=== PATIENT | female | born 1995 | race Caucasian/White ===

== ENCOUNTER 2022-03-21 14:24 | Outpatient (CLI) | payer MEDICAID, SELFPAY ==
[2022-03-22 13:09] LABS: Strep B DNA Probe NEGATIVE (Negative)
== END 2022-03-21 14:25 | disposition home or self-care (01) ==
LOC: NFLDREF 14:24
PROVIDERS: Visit Provider Advanced Practice Midwife
DX: Z34.93 Encounter for supervision of normal pregnancy, unspecified, third trimester (principal); Z3A.35 35 weeks gestation of pregnancy
CPT/HCPCS: 87081; 87653

== ENCOUNTER 2022-04-05 | Outpatient (CLI) | payer MEDICAID, SELFPAY ==
[2022-04-05] VITALS (9 sets, daily range): BP systolic 115–129; BP diastolic 72–81; PULSE 85–111; RESP 15–16; TEMP 36.8–36.9; BMI 23.2
--- OUTSIDE RECORDS SUMMARY | 2022-04-05 00:02 | XMS_ITS | Encounter Summary ---
:1995 Author Organization [facility] Address [address] [place] [address] Care Team Providers Name Role Phone Unavailable Primary Care Provider Unavailable Reason for Visit Reason Comments COVID Nurse Line Encounter Details Date Type Department Care Team Description 07/23/2021 Clinical Communication Division of Cyndee Anderson Nurse Ntahaly [facility] M, R.N. [facility] [place] [address] [place] [address] [facility] [address] [place] [phone] [place] [address] (Work) [place] [phone] Social History Tobacco Use Types Packs/Day Years Used Date Smoking Tobacco: Never Assessed Sex Assigned at Date Recorded Female 10/11/2021 10:05 AM RESEARCH CHEMIST documented as of this encounter Miscellaneous Notes Telephone Encounter - Cyndee Anderson M.S., R.N. - 07/23/2021 8:59 AM RESEARCH CHEMIST COVID-19 Nurse Line Screening ASSESSMENT Initial Screening Pathway Select appropriate pathway: : Adult In the last 48 hours, have you had a fever* OR symptoms that are unrelated to a preexisting illness?: New sore throat,New headache,New cough,New nausea,New loss of smell,New change or loss of taste sensation COVID Symptomatic Screening Do you have any of the following urgent symptoms?: No urgent symptoms noted (Continue Screening) Have you received a COVID-19 vaccine in the last 72 hours? : No vaccine received (Continue Screening) Have you had close contact* with a person who has a LABORATORY CONFIRMED case of COVID-19 in the past 14 days?: No (Continue Screening) Have you tested positive for COVID-19 in the last 45 days?: No. COVID-19 testing is indicated (Continue Screening for Additional Testing) Additional Screening for Influenza, RSV and Strep Select appropriate region: : [place] Do you have any of the following respiratory syntonical virus (RSV) complications? : No complications noted (Continue Screening) Do you have any of the following high risk influenza criteria?: No criteria noted (Continue Screening) Are all of the following Strep criteria met? : No, all criteria are not met. Influenza tesing is indicated. (End Screening) Symptom Onset Date of symptom onset: 07/19/21 Testing Recommendation Endpoint Is testing recommended? : Recommended to test Further Triage Needs Any further triage needs? : No further concerns noted. PLAN Endpoint recommendation: Symptomatic testing indicated, advised to be swabbed for COVID-19 and Influenza, sent to [facility] located at [address] [place] [address] ([facility]). An appointment is required for testing, please call [phone] Monday-Monday 7am to 6pm and Monday & Monday 9am to 4pm to schedule an appointment. Testing hours are 8am - 4:30pm daily. You can also schedule via your Patient Online Services account., Please avoid using public transportation per CDC recommendation. If you do not have personal transportation please self-quarantine until a personal transportation option is available. Standard Care Points -Get a COVID -19 vaccine as soon as you can if not fully vaccinated. -Wash hands frequently with soap and water, use hand picked edge sewing machine operator if soap and water aren't available. -Wear a mask over your nose and mouth to help protect yourself and others if not fully vaccinated and having no symptoms -Stay 6 feet between yourself and others who don't live with you. -Avoid crowds and poorly ventilated indoor spaces. -Seek emergent care if any of the following occur Trouble breathing Bluish lips or face Persistent pain or pressure in the chest New confusion or inability to rouse. -Notify your regular care provider of any new or worsening symptoms. Symptomatic Carepoints: Stay home and separate yourself from others and stay in a specific sick room if able. Avoid sharing personal or household items. Rest. Hydrate. Take Acetaminophen/Ibuprofen asneeded to control fever and muscles aches. Use over the counter medications as needed for other symptoms. Education: Patient/caregiver able to teach back Patient agreeable to plan of care: Yes The following references were used: [facility] novel coronavirus (COVID- 19) resources ARCH CHEMIST documented in this encounter Plan of Treatment Not on filedocumented as of this encounter Visit Diagnoses Not on filedocumented in this encounter
--- OUTSIDE RECORDS SUMMARY | 2022-04-05 00:02 | XMS_ITS | Encounter Summary ---
:1995 Author Organization [facility] Address [address] [place] [address] Care Team Providers Name Role Phone Unavailable Primary Care Provider Unavailable Reason for Visit Reason Onset Date Comments Testing For Upper Respiratory Virus Symptoms 07/23/2021 Encounter Details Date Type Department Care Team Description 07/23/2021 External Outreach Department of Family Ashanti Wiley Contact With And (Suspected) Exposure To COVID-19; [facility] Felecia Bahena Infection [facility] Respiratory [facility], in [address] [place], [place] 134 [facility] [address] [place], [place] [phone] [address] (Work) [phone] Social History Tobacco Use Types Packs/Day Years Used Date Smoking Tobacco: Never Assessed Sex Assigned at Date Recorded Female 10/11/2021 10:05 AM 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 - 07/23/2021 9:14 AM CST Encounter created for symptomatic infectious disease screening with possible COVID, Influenza, RSV, and/or Group A Strep testing. CTURES TECHNICIAN documented in this encounter Plan of Treatment Not on filedocumented as of this encounter Procedures Procedure Name Priority Date/Time Associated Diagnosis Comme nts SARS CORONAVIRUS-2 Routine 07/23/2021 11:24 AM Contact With An d Results for this RNA, V STRUCTURES TECHNICIAN (Suspected) Exposure procedu re are in To COVID-19 the results section. INFLUENZA A/B AND Routine 07/23/2021 11:24 AM Res ults for this RSV, PCR STRUCTURES TECHNICIAN procedure are i n the results section. documented in this encounter Results Influenza A/B and Respiratory Syncytial Virus, PCR (07/23/2021 11:24 AM STRUCTURES TECHNICIAN) Component Value Ref Range Test Analysis Performed Pathologis t Method Time At Signature Specimen NASOPHARYNGEAL 07/24/2021 DTL Source SWAB 4:04 PM STRUCTURES TECHNICIAN Influenza A, Negative Negative 07/24/2021 DTL PCR 4:04 PM STRUCTURES TECHNICIAN Influenza B, Negative Negative 07/24/2021 DTL PCR 4:04 PM STRUCTURES TECHNICIAN Respiratory Negative Negative 07/24/2021 DTL Syncytial 4:04 PM STRUCTURES TECHNICIAN Virus, PCR Comment: ----ADDITIONAL INFORMATION---- This assay is performed using the FDA-cl eared Simplexa Flu A/B and RSV Direct ([employer] For testing p erformed at [facility] in [place], [place], performance characteristics for samp les submitted in phosphate buffered saline were determined by [facility] in a manner consistent with CLIA requirements. Specimen Anatomical Collection Method Collection Time Receive d Time (Source) Location / / Volume Laterality Varies 07/23/2021 11:24 07/24/2021 AM STRUCTURES TECHNICIAN 11:58 AM STRUCTURES TECHNICIAN Wiley Burrell D.O. LAB MICROBIOLOGY - GENERAL O RDERABLES Performing Organization Address City/State/ZIP Code Phon e Number [facility] - [address] [place] [phone] [facility] [place] [address] [facility] 200 [facility] SARS Coronavirus-2 RNA, V Symptomatic (07/23/2021 11:24 AM STRUCTURES TECHNICIAN) Patholo gist Method Time Signature SARS-CoV-2 Swab, 07/24/2021 MKTO Specimen Nasopharynx 12:26 AM Source STRUCTURES TECHNICIAN SARS CoV-2 Undetected Undetected 07/24/2021 MKTO RNA, TMA 12:26 AM STRUCTURES TECHNICIAN Comment: SARS-CoV-2 RNA absent. This result does not rule out COVID-19 in the patient, as the sensitivity of the test depends o n the timing of the specimen collection and the quality of the specim en. Result should be correlated with patient's history and clinical presentat ion. ----ADDITIONAL INFORMATION---- This molecular amplification test was pe rformed using the Aptima SARS-CoV-2 assay ([employer] on the MEDOVENTs tem under emergency use authorization (EUA) by the U.S. Food and Drug Administ sha. Fact sheets for this EUA assay can be fo und at the following links: For Healthcare Providers: https://www.fd a.gov/media/299974/download For Patients: https://www.fda.gov/media/ 545484/download Specimen Anatomical Collection Method Collection Time Receive d Time (Source) Location / / Volume Laterality Varies 07/23/2021 11:24 07/23/2021 8:00 (Nasopharynx) AM STRUCTURES TECHNICIAN PM STRUCTURES TECHNICIAN Wiley Burrell D.O. LAB MICROBIOLOGY - GENERAL O RDERABLES Performing Organization Address City/State/ZIP Code Phon e Number [facility]- [address] [place] [address] [place] [address] System in [address] documented in this encounter Visit Diagnoses Diagnosis Contact With And (Suspected) Exposure To COVID-19 Infection Upper Respiratory documented in this encounter Additional Health Concerns Infection Onset Date Last Indicated Resolved Time COVID19 Pending 07/23/2021 07/23/2021 07/24/2021 12:27 AM STRUCTURES TECHNICIAN documented as of this encounter
--- OUTSIDE RECORDS SUMMARY | 2022-04-05 00:02 | XMS_ITS | Encounter Summary ---
:1995 Author Organization [facility] Address [address] [place] [address] Care Team Providers Name Role Phone Unavailable Primary Care Provider Unavailable Encounter Details Date Type Department Care Team Description 07/23/2021 Admin Visit Department of Family Medicine, [address] [address] 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
--- OUTSIDE RECORDS SUMMARY | 2022-04-05 00:02 | XMS_ITS | Clinical Summary ---
:[address] [facility] Address [address] [place] [address] Care Team Providers Name Role Phone Unavailable Primary Care Provider Unavailable Source Comments Patient records contain information from all sites at [facility]. For routine questions regarding patient records, call [phone] during business hours, M-F 8:00 AM - 5:00 PM Central Time. Record requests for emergency care only can be directed to [phone] at any time.[facility] Social History Tobacco Use Types Packs/Day Years Used Date Smoking Tobacco: Never Assessed Sex Assigned at Date Recorded Female 10/11/2021 10:05 AM [employer]BER[employer] ADVISORS Plan of Treatment Health Maintenance Due Date Last Done Comments HIV Screening 1995 Hepatitis B Vaccines (1 of 1995 3 - 3-dose series) Hepatitis C Screening 1995 Depression Screening 08/14/2021 (Annual PHQ-2) Influenza Vaccine (#1) 2022 07/21/2011, 07/21/2011 Cervical Cancer Screening 06/10/2024 06/10/2021 DTaP,Tdap,and Td Vaccines 08/10/2028 08/10/2018, 10/07/2016 , (7 - Td or Tdap) 05/26/2008, Additional history exists HPV Vaccines Completed 02/14/2012, 07/21/2011, 04/21/2010 COVID-19 Vaccine Completed 10/12/2021, 01/06/2021, 12/16/2020 Pneumococcal vaccine (0-64 Aged Out No lo nger eligible years) based on patient 's age to complete this topic Insurance Payer Benefit Plan / Subscriber ID Effective Dates Phone Addre ss Type Group UCARE UCARE [id number] 2021-Present [phone] [address] [place] [address]
--- OUTSIDE RECORDS SUMMARY | 2022-04-05 00:02 | XMS_ITS | Encounter Summary ---
:1995 Author Organization [facility] Address [address] [place] [address] Care Team Providers Name Role Phone Unavailable Primary Care Provider Unavailable Reason for Visit Reason Comments COVID Inquiry Encounter Details Date Type Department Care Team Description 07/23/2021 Clinical Communication Central Appointment [facility] Office in [address] [id number] Social History Tobacco Use Types Packs/Day Years Used Date Smoking Tobacco: Never Assessed Sex Assigned at Date Recorded Female 10/11/2021 10:05 AM WOMEN'S GARMENT FITTER documented as of this encounter Miscellaneous Notes Telephone Encounter - Krystle Paula R.N. - 07/23/2021 8:41 AM CST What is the purpose of the call?: Symptomatic (Calling PCP Office) Calling [place] [facility] What region is the patient calling from? : [place] Have you tested positive for COVID-19 in the last 20 days? : No In the past 14 days are any of the following symptoms new to you and not related to an existing health condition?: New cough,New sore throat,New headache (runny nose) Because of symptoms, transfer patient to: : [place] COVID Nurse Line (End Screening) Symptom Onset Date of symptom onset: 07/19/21 Plan: Endpoint recommendation: Transferred to Nursing/COVID Line/Care Team *Reminder if sending patient for testing in [facility] or [facility], route encounter to the correct testing pool. N'S GARMENT FITTER documented in this encounter Plan of Treatment Not on filedocumented as of this encounter Visit Diagnoses Not on filedocumented in this encounter
--- NOTE | 2022-04-05 02:23 | W.PM.LDBA ---
Subjective History of Present Illness Narrative: Patient is being admitted to Labor and Delivery for labor. She is a 26 year old at 37.2 weeks gestation. She began contractions around 2200 and they have increased in frequency and intensity since. She was AmniSure negative in the clinic yesterday but she continues to leak a small amount of clear fluid and especially notices it with contractions. Will repeat AmniSure. She endorses good movement and denies bleeding. She is planning an unmedicated and would like to utilize hydrotherapy. Her full history and physical was dictated by Darrin Whelan CNM on 04/04/2022. Please see this for details. Pelvic:? SVE: 3cm/50%/-2 per RN exam. She made cervical change 1 hour later to 4cm.? Membrane status:? intact (will confirm with a repeat AmniSure due to continuing to leak fluid with contractions)? presentation:? vertex? FHT:? Moderate Variability.? Positive Accels.? No Decels. Baseline 130.? [place]:? Ctx Q2-3min? 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 HERMINIA on first US:? 0.7 x 2.2 x 1.6 cm 2. H/o GDM w/ 2nd ?? ? A1C:? 4.8% ?? ? Early glucose test, to be completed at 20 week visit:? 139 ?? ? 28 week gct: 159. 3hr gtt: passed 3. H/o preE w/ 1st ?? ? Daily baby ASA at 12 weeks 4. H/o PP anxiety and depression; took lexapro for short period of time; feels she is doing well now 5. Varicella non immune: will need PP vaccination 6.??O Rh negative.? RhoGAM at 28 weeks. NEEDS RhoGAM at 28 weeks: given 02/02/22 NEEDS RhoGAM pp 7.? EFW 12 % at 20 weeks:? She is small stature and has smaller babies.? Repeat US for EFW at 28 weeks:? growth 25%.? 8.? 1.5 cm umbilical hernia 9. Measuring smaller than dates 04/04/22 Hx of small babies, slightly behind dates but has consistently measured small. Consider growth US next visit. Mat 21:? Negative contraception: sterilization.? Planning tubal ligation after delivery: consent reviewed and signed. 03/21/2022 Generic sterilization handout given. OB - H&P: Exam Physical Exam: Vital signs: Pulse BP 111 H 127/72 04/05/22 00:13 04/05/22 00:13 Constitutional: Constitutional: no acute distress Routine HEENT Exam: Head: Present normal inspection Routine Neck Exam: Neck: Present full ROM Routine Respiratory Exam: Respiratory: Present CTA bilaterally Routine Cardiovascular Exam: Cardiovascular: RRR Detailed Labor and Delivery Exam: Patient Gravid: yes Dilation (cm): 4 Effacement (%): 50 Tachysystole: No Contraction intensity: Moderate Comments: contractions ever 2-3 min Fetus (Single): Monitor Accelerations: Present Monitor Decelerations: None Digital Media Specialist Variability: Moderate (11-25) (6-5) Routine Extremities Exam: Extremities: Present full ROM Routine Back/Spine/Pelvis Exam: Back/Spine: full ROM Routine Neurological Exam: Present alert and oriented X3 Routine Psychiatric Exam: Present normal affect, normal thought process and cooperative OB - Problem Based A/P Additional Plan (1) : Status: Acute (2) Rh negative status during : Status: Acute Plan ASSESSMENT:? at 37.2 weeks gestation? GBS negative RH negative? Uncomplicated ? PLAN:? 1. Desires water . Consent signed. Hep C negative.? 2. Candidate for analgesia of choice. Planning unmedicated .? 3. Anticipate ? 4. Expectant management at this time.? 5. IV to be placed for hx PP hemorrhage 6. Intermittent auscultation or per unit policy as condition changes or per nurses discretion. ? Delivery/Labor/Induction Plan Plan: expectant management
[2022-04-05 02:33] LABS: Basophils Percent Auto 0.2 % (0.0-3.0); Eosinophils Percent Auto 0.3 % (0.0-7.0); Hematocrit 36.7 % (33.0-51.0); Hemoglobin* 12.3 gm/dL (12.0-16.0); Immature Granulocytes Abs Auto 0.11 K/uL (0.00-0.30); Lymphocytes Percent Auto 18.2 % (20-44); Mean Corpuscular HGB Conc 34 gm/dL (32-36); Mean Corpuscular Hemoglobin 31 pg (26-34); Mean Corpuscular Volume 93 fL (80-100); Neutrophils Percent Auto 76.5 % (42.0-72.0); Platelet Count* 288 K/uL (140-440); RDW Coefficient of Variation % 13.6 % (11.5-15.5); Red Blood Count 3.93 m/uL (4.00-5.20); Slide Review Reflex No; White Blood Count* 14.43 K/uL (4.50-11.00)
[2022-04-05 03:33] LABS: SARS PCR* Negative SARS-CoV-2 (Negative)
--- NOTE | 2022-04-05 08:20 | P.DS_ITS ---
DS: Providers Provider Date Seen: 04/05/22 Primary care physician: Not a Local Provider Admitting Clinician: Beatriz Alfred CNM Attending Physician on discharge: Stephany Whelan CNM Date of Discharge: 04/05/22 DS: Diagnosis Discharge Diagnosis (1) Pain during labor: Status: Acute (2) : Status: Acute (3) Rh negative status during : Status: Acute Discharge Plan Discharge Disposition: Home, Self-Care Primary Care Provider: Provider,Not a Local Patient Instructions: OB Undelivered at 35 weeks IUP or more Activity Restrictions/Additional Instructions: Patient verbalized understanding of reviewed discharge instructions. Discharge Orders: Discharge Order (Routine); Ordered 04/05/22 Ordered By: Stephany Whelan Discharge Medications: No Action doxylamine succinate 25 mg tablet 25 mg PO .Bedtime aspirin 81 mg tablet,chewable 81 mg PO QDAY magnesium hydroxide 400 mg/5 mL suspension 30 ml PO .Daily as needed PRN famotidine 10 mg tablet 10 mg PO DAILY ferrous sulfate 325 mg (65 mg iron) tablet 325 mg PO DAILY calcium carbonate [Tums] 200 mg calcium (500 mg) tablet,chewable 200 mg PO BID ondansetron HCl 4 mg tablet 4 mg PO Q6H PRN (Reason: nausea and vomiting) Qty: 60 3RF prenat.vits,waldo,kdy-ghty-okads Tablet 1 tab PO QDAY Hospital Course Course Hospital Course: Jeffery is a at 37 2/7 weeks gestation admitted this morning for labor pain and contractions. She initially made change but stalled out at 5 cm and has remained unchanged for 4 hours, recent exam 5/60%/-3. She does continue to have irregular contractions that feel intense but not more than when she arrived. Labs Labs: Laboratory Tests 04/05/22 04/05/22 04/05/22 Range/Units 02:29 02:29 01:40 WBC 14.43 H (4.50-11.00) K/uL RBC 3.93 L (4.00-5.20) m/uL Hgb 12.3 (12.0-16.0) gm/dL Hct 36.7 (33.0-51.0) % MCV 93 (80-100) fL MCH 31 (26-34) pg MCHC 34 (32-36) gm/dL RDW Coeff of Shana 13.6 (11.5-15.5) % Plt Count 288 (140-440) K/uL Neut % (Auto) 76.5 H (42.0-72.0) % Lymph % (Auto) 18.2 L (20-44) % [place] % (Auto) 4.0 (0.0-11.0) % Eos % (Auto) 0.3 (0.0-7.0) % Baso % (Auto) 0.2 (0.0-3.0) % Neut # (Auto) 11.00 H (1.7-7.0) K/uL Lymph # (Auto) 2.60 (0.90-2.90) K/uL [place] # (Auto) 0.60 (0.00-0.90) K/UL Eos # (Auto) 0.00 (0.00-0.50) K/uL Baso # (Auto) 0.00 (0.00-0.30) K/uL Abs Immat Gran (auto) 0.11 (0.00-0.30) K/uL SARS-CoV-2 (PCR) Negative SARS-CoV-2 (Negative) Blood Type O Negative Antibody Screen POSITIVE Antibody Identification Pending OB Problem List Additional Plan (1) : Status: Acute (2) Rh negative status during : Status: Acute (3) Pain during labor: Status: Acute Delivery/Labor/Induction Plan Plan: other (Discharge home for expectant management. Return with increasing or more regular contractions or pain.) DS: Summary Vital Signs Vital Signs: Vital Signs Temp Pulse Resp BP 04/05/22 06:54 98.4 F 16 04/05/22 06:52 85 115/74 04/05/22 05:53 98.3 F 85 15 129/81 04/05/22 04:55 98.4 F 86 16 124/77 04/05/22 03:58 98.5 F 16 04/05/22 03:57 88 125/80 04/05/22 03:00 98.4 F 111 H 16 123/79 04/05/22 03:21 111 H 123/79 04/05/22 00:13 111 H 127/72 Discharge Examination General appearance: alert and in no apparent distress
== END 2022-04-05 08:39 | disposition home or self-care (01) ==
LOC: OB OUT 00:01 → OB 08:31
PROVIDERS: Visit Provider Advanced Practice Midwife
DX: O47.1 False labor at or after 37 completed weeks of gestation (principal); Z3A.37 37 weeks gestation of pregnancy; Z01.83 Encounter for blood typing; Z11.3 Encounter for screening for infections with a predominantly sexual mode of transmission
CPT/HCPCS: 36415; 85025; 86850; 86870; 86880; 86900; 86901; 87635; 99213

== ENCOUNTER 2022-04-18 15:44 | Inpatient (IN) | payer MEDICAID, SELFPAY ==
[2022-04-18] VITALS (61 sets, daily range): BP systolic 65–160; BP diastolic 40–96; PULSE 90–164; RESP 14–16; TEMP 36.5–37.2; O2SAT 88–100; BMI 23.0
--- OUTSIDE RECORDS SUMMARY | 2022-04-18 15:22 | XMS_ITS | Encounter Summary ---
:1995 Author Organization [facility] Address [address] [place] [address] Care Team Providers Name Role Phone Unavailable Primary Care Provider Unavailable Reason for Visit Reason Onset Date Comments Testing For Upper Respiratory Virus Symptoms 07/23/2021 Encounter Details Date Type Department Care Team Description 07/23/2021 External Outreach Department of Family Ashanti Wiley Contact With And (Suspected) Exposure To COVID-19; [facility] Felecia Bahena Infection [facility] Respiratory [facility], in [address] [place], [place] [address] 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 - 07/23/2021 9:14 AM CST Encounter created for symptomatic infectious disease screening with possible COVID, Influenza, RSV, and/or Group A Strep testing. UCTION ASSOCIATE documented in this encounter Plan of Treatment Not on filedocumented as of this encounter Procedures Procedure Name Priority Date/Time Associated Diagnosis Comme nts SARS CORONAVIRUS-2 Routine 07/23/2021 11:24 AM Contact With An d Results for this RNA, V PRODUCTION ASSOCIATE (Suspected) Exposure procedu re are in To COVID-19 the results section. INFLUENZA A/B AND Routine 07/23/2021 11:24 AM Res ults for this RSV, PCR PRODUCTION ASSOCIATE procedure are i n the results section. documented in this encounter Results Influenza A/B and Respiratory Syncytial Virus, PCR (07/23/2021 11:24 AM PRODUCTION ASSOCIATE) Component Value Ref Range Test Analysis Performed Pathologis t Method Time At Signature Specimen NASOPHARYNGEAL 07/24/2021 DTL Source SWAB 4:04 PM PRODUCTION ASSOCIATE Influenza A, Negative Negative 07/24/2021 DTL PCR 4:04 PM PRODUCTION ASSOCIATE Influenza B, Negative Negative 07/24/2021 DTL PCR 4:04 PM PRODUCTION ASSOCIATE Respiratory Negative Negative 07/24/2021 DTL Syncytial 4:04 PM PRODUCTION ASSOCIATE Virus, PCR Comment: ----ADDITIONAL INFORMATION---- This assay is performed using the FDA-cl eared Simplexa Flu A/B and RSV Direct ([employer] For testing p erformed at [facility] in [place], [place], performance characteristics for samp les submitted in phosphate buffered saline were determined by [facility] in a manner consistent with CLIA requirements. Specimen Anatomical Collection Method Collection Time Receive d Time (Source) Location / / Volume Laterality Varies 07/23/2021 11:24 07/24/2021 AM PRODUCTION ASSOCIATE 11:58 AM PRODUCTION ASSOCIATE Wiley Burrell D.O. LAB MICROBIOLOGY - GENERAL O RDERABLES Performing Organization Address City/State/ZIP Code Phon e Number [facility] - [address] [place] [phone] [facility] [place] [address] Laboratories-[facility] [address] [facility] SARS Coronavirus-2 RNA, V Symptomatic (07/23/2021 11:24 AM PRODUCTION ASSOCIATE) Patholo gist Method Time Signature SARS-CoV-2 Swab, 07/24/2021 MKTO Specimen Nasopharynx 12:26 AM Source PRODUCTION ASSOCIATE SARS CoV-2 Undetected Undetected 07/24/2021 MKTO RNA, TMA 12:26 AM PRODUCTION ASSOCIATE Comment: SARS-CoV-2 RNA absent. This result does not rule out COVID-19 in the patient, as the sensitivity of the test depends o n the timing of the specimen collection and the quality of the specim en. Result should be correlated with patient's history and clinical presentat ion. ----ADDITIONAL INFORMATION---- This molecular amplification test was pe rformed using the Aptima SARS-CoV-2 assay ([employer] on the [employer] tem under emergency use authorization (EUA) by the U.S. Food and Drug Administ sha. Fact sheets for this EUA assay can be fo und at the following links: For Healthcare Providers: https://www.fd a.gov/media/819179/download For Patients: https://www.fda.gov/media/ 073106/download Specimen Anatomical Collection Method Collection Time Receive d Time (Source) Location / / Volume Laterality Varies 07/23/2021 11:24 07/23/2021 8:00 (Nasopharynx) AM PRODUCTION ASSOCIATE PM PRODUCTION ASSOCIATE Wiley Burrell D.O. LAB MICROBIOLOGY - GENERAL O RDERABLES Performing Organization Address City/State/ZIP Code Phon e Number [facility]- [address] [place] [address] [place] [address] System in [address] documented in this encounter Visit Diagnoses Diagnosis Contact With And (Suspected) Exposure To COVID-19 Infection Upper Respiratory documented in this encounter Additional Health Concerns Infection Onset Date Last Indicated Resolved Time COVID19 Pending 07/23/2021 07/23/2021 07/24/2021 12:27 AM PRODUCTION ASSOCIATE documented as of this encounter
--- OUTSIDE RECORDS SUMMARY | 2022-04-18 15:22 | XMS_ITS | Clinical Summary ---
:1995 Author Organization [facility] [place] [address] Support Name Relationship Address Phone Kalli Deleon Unavailable [address] [phone] [place] [address] Satnam Gonzalez Unavailable Unavailable Care Team Providers Name Role Phone Marie Mathews MD Primary Care Provider [phone] Allergies Active Allergy Reactions Severity Noted Date Comments Amoxicillin Vomiting 12/04/2014 Blood-Group Specific Other - Describe In 12/26/2016 Patient has passive Substance Comment Field Anti-D.Blood p roduct orders may be delayed. Draw 2 purple tops and one red top for all Type and Screen/Red cell product orders. Sulfa (Sulfonamide *Unknown - Childhood 04/21/2010 Antibiotics) Rxn Tetracycline Hives 02/14/2012 Medications Medication Sig Dispensed Refills Start Date End Date Status metoclopramide HCl Take 1 Tablet 15 Tablet 0 09/29/2021 Active (REGLAN) 10 mg (10 mg) by tabletIndications: Nausea mouth every 6 vomiting and diarrhea hours if needed for Nausea/Vomiting . diphenhydrAMINE Take 1 Tablet 15 Tablet 0 09/29/2021 Active (BENADRYL) 25 mg (25 mg) by tabletIndications: Nausea mouth every 4 vomiting and diarrhea hours. Active Problems Problem Noted Date Family history of leukemia 06/11/2021 Overview: Daughter, diagnosed at age 2 h/o hemorrhage 06/11/2021 Overview: 2nd delivery, delivered at [place] [facility] Myopia of both eyes with astigmatism 08/23/2017 Anxiety 03/19/2015 Estimated Date of Delivery Comments Yes 04/24/2022 Resolved Problems Problem Noted Date Resolved Date Mild pre-eclampsia in third trimester 12/18/2016 Suspected rupture of membranes not found for normal first 02/12/2021 Immunizations Name Administration Dates Next Due COVID-19 vaccine ([employer] 10/12/2021 30mcg/0.3mL) 12YO+ KERRI-SUCROSE PF, MDV COVID-19 vaccine ([employer] 01/06/2021, 12/16/2020 30mcg/0.3mL) PF, MDV DTP 03/25/1997, 07/15/1996 DTP-HIB 03/25/1997, 07/15/1996 DTaP-HIB (TriHIBIT) 02/02/2001, 02/02/2001 HIB PRP-D (ProHIBIT) 03/25/1997, 07/15/1996 Hepatitis B (Peds) 11/13/1996, 07/15/1996, 1995 Human Papilloma Virus Vaccine 02/14/2012, 07/21/2011, 2009 Inactivated Polio Vaccine 02/02/2001, 03/25/1997, 07/15/1996 Influenza, IIV3 (Age 6-35 mos) 07/21/2011 Influenza, IIV3 (Age >=3 years) 07/21/2011 Influenza, IIV4 06/10/2021, 07/12/2018, 04/23/2015 MMR 02/02/2001, 03/25/1997 MMRV 04/13/1998, 03/25/1997 Meningococcal Vaccine (Menactra) 05/26/2008 Meningococcal Vaccine (Menveo) 02/14/2012 Oral Polio Vaccine 03/25/1997, 07/15/1996 Tdap 08/10/2018, 10/07/2016, 05/26/2008 Varicella Vaccine 05/26/2008, 04/13/1998 Family History Medical History Relation Name Comments Good Health Child Leukemia Daughter Cancer-breast Maternal Grandmother Cancer-colon Maternal Grandmother Cancer-breast Mother Relation Name Status Comments Child Alive Daughter Alive Maternal Grandmother Mother Alive Sister 1 Alive Sister 2 Alive Social History Tobacco Use Types Packs/Day Years Used Date Former Smoker Cigarettes 0.25 Quit: 09/13/19 20 Smokeless Tobacco: Never Used Tobacco Cessation: Counseling Given: Yes Comments: 3 cigs/day for 6 months Alcohol Use Standard Drinks/Week Comments No 0 (1 standard drink = 0.6 oz pure alcoho l) Estimated Date of Delivery Comments Yes 04/24/2022 Sex Assigned at Date Recorded Female 10/21/2020 2:00 PM 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 Delivered at [place]. Last Filed Vital Signs Vital Sign Reading Time Taken Comments Blood Pressure 139/85 09/29/2021 3:46 PM SHUTTLE PREPARATION SUPERVISOR Pulse 96 09/29/2021 4:01 PM SHUTTLE PREPARATION SUPERVISOR Temperature 36.5 ??C (97.7 ??F) 09/29/2021 3:46 PM SHUTTLE PREPARATION SUPERVISOR Respiratory Rate 22 09/29/2021 3:46 PM SHUTTLE PREPARATION SUPERVISOR Oxygen Saturation 98% 09/29/2021 4:01 PM SHUTTLE PREPARATION SUPERVISOR Inhaled Oxygen Concentration - - Weight 40.8 kg (90 lb) 09/29/2021 3:46 PM SHUTTLE PREPARATION SUPERVISOR Height 152.4 cm (5') 09/29/2021 3:46 PM SHUTTLE PREPARATION SUPERVISOR Body Mass Index 17.58 09/29/2021 3:46 PM SHUTTLE PREPARATION SUPERVISOR Plan of Treatment Health Maintenance Due Date Last Done Comments Hepatitis C screening for age 0512/19/2013 18-79 Depression screening for age 12+ 02/12/2022 02/12/2021, , 10/30/2020, Additional history exists Influenza for age 9-49 04/14/2022 06/10/2021, 07/12/2018, 04/23/2015, Additional history exists BMI (ht and wt on same day) for 06/10/2022 06/10/2021, 07/0 09/2020, age 18+ 10/29/2019, Additional history exists Pap test for age 21-65 06/10/2024 06/10/2021, 02/03/2017 Tetanus booster 08/10/2028 08/10/2018, 10/07/2016, 05/26/2008 HPV series for age 9-26 Completed 02/14/2012, 02/14/2012, 07/21/2011, Additional history exists Tdap Completed 08/10/2018, 10/07/2016, 05/26/2008 COVID-19 vaccine series Completed 10/12/2021, 01/06/2021, 12/16/2020 Results Not on filefrom Last 3 Months Insurance Payer Benefit Plan / Subscriber ID Effective Dates Phone Addre ss Type Group [employer] 2021-Present [address] [place] [address] [facility] [id number] 2021-Present [address] [place] [address] [address] [place] [address] LisaJeffery Personal/Family Self 1995 [address] (Home) [address] [place] [address] Advance Directives Latest Code Status on File Code Status Date Activated Date Inactivated Comments Full Code 12/19/2016 4:56 AM 2016 5:24 PM Full Code 12/18/2016 1:41 PM 12/19/2016 4:56 AM Full Code 11/30/2016 10:20 AM 11/30/2016 1:14 PM Full Code 09/14/2016 10:31 AM 09/14/2016 2:20 PM Code Status Discussion: Not Discussed Care Teams Milk Receiver Relationship Specialty Start Date End Date Marie Mathews MD PCP - General Family Practice 02/12/21 [address] [facility] Precious HERZOGSHASHI NELSON [address]
--- OUTSIDE RECORDS SUMMARY | 2022-04-18 15:22 | XMS_ITS | Encounter Summary ---
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
--- OUTSIDE RECORDS SUMMARY | 2022-04-18 15:22 | XMS_ITS | Encounter Summary ---
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 - 07/23/2021 8:41 AM CST What is the purpose of the call?: Symptomatic (Calling PCP Office) Calling [place] PCP Office What region is the patient calling from? : [place] Have you tested positive for COVID-19 in the last 20 days? : No In the past 14 days are any of the following symptoms new to you and not related to an existing health condition?: New cough,New sore throat,New headache (runny nose) Because of symptoms, transfer patient to: : [place] COVID Nurse Line (End Screening) Symptom Onset Date of symptom onset: 07/19/21 Plan: Endpoint recommendation: Transferred to Nursing/COVID Line/Care Team *Reminder if sending patient for testing in [facility] or [facility], route encounter to the correct testing pool. SFER SPECIALIST documented in this encounter Plan of Treatment Not on filedocumented as of this encounter Visit Diagnoses Not on filedocumented in this encounter
--- OUTSIDE RECORDS SUMMARY | 2022-04-18 15:22 | XMS_ITS | Clinical Summary ---
:1995 Author Organization [facility] Address [address] [place] [address] Care Team Providers Name Role Phone Unavailable Primary Care Provider Unavailable Source Comments Patient records contain information from all sites at [facility]. For routine questions regarding patient records, call [phone] during business hours, M-F 8:00 AM - 5:00 PM Central Time. 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
[2022-04-18 16:20] LABS: Basophils Absolute Auto 0.03 K/uL (0.00-0.30); Basophils Percent Auto 0.3 % (0.0-3.0); Eosinophils Absolute Auto 0.04 K/uL (0.00-0.50); Eosinophils Percent Auto 0.4 % (0.0-7.0); Hematocrit 35.7 % (33.0-51.0); Immature Granulocytes Abs Auto 0.15 K/uL (0.00-0.30); Lymphocytes Percent Auto 13.1 % (20-44); Mean Corpuscular HGB Conc 34 gm/dL (32-36); Mean Corpuscular Hemoglobin 31 pg (26-34); Mean Corpuscular Volume 92 fL (80-100); Monocytes Percent Auto 4.6 % (0.0-11.0); Neutrophils Percent Auto 80.2 % (42.0-72.0); Platelet Count* 298 K/uL (140-440); RDW Coefficient of Variation % 13.4 % (11.5-15.5); White Blood Count* 10.96 K/uL (4.50-11.00)
[2022-04-18 16:21] LABS: Slide Review Reflex No
--- NOTE | 2022-04-18 16:21 | W.PM.LDBA ---
Subjective History of Present Illness Narrative: Patient is being admitted to Labor and Delivery for spontaneous onset of labor. She is a 26 year old at 39 1/7 weeks gestation. Her full history and physical was dictated by Darrin Whelan CNM on 04/04/2022. Please see this for details. OB History 1. HERMINIA on first US: 0.7 x 2.2 x 1.6 cm 2. H/o GDM w/ 2nd A1C: 4.8% Early glucose test, to be completed at 20 week visit: 139 28 week gct: 159. 3hr gtt: passed 3. H/o preE w/ 1st Daily baby ASA at 12 weeks 4. H/o PP anxiety and depression; took lexapro for short period of time; feels she is doing well now 5. Varicella non immune: will need PP vaccination 6. O Rh negative. RhoGAM at 28 weeks. NEEDS RhoGAM at 28 weeks: given 02/02/22 NEEDS RhoGAM pp 7. EFW 12 % at 20 weeks: She is small stature and has smaller babies. Repeat US for EFW at 28 weeks: growth 25%. 8. 1.5 cm umbilical hernia 9. Measuring smaller than dates 04/04/22 Hx of small babies, slightly behind dates but has consistently measured small. Consider growth US next visit. 10. Anti-D antibody present on 04/05/22 admission T&S, likely related to Rhogam at 28 weeks Previously negative Awaiting Titer results Mat 21: Negative contraception: sterilization. Planning tubal ligation after delivery: consent reviewed and signed. 03/21/2022 Generic sterilization handout given. Flu: Covid: completed; recommended obtaining booster Tdap: OB - H&P: Exam Physical Exam: Vital signs: Pulse BP 109 H 129/89 04/18/22 15:21 04/18/22 15:21 Constitutional: Constitutional: moderate distress (Very stoic) Routine Neck Exam: Neck: Present full ROM Detailed Neck Exam: Thyroids: Comments: Supple Routine Respiratory Exam: Respiratory: Present CTA bilaterally Routine Cardiovascular Exam: Cardiovascular: RRR Detailed Abdominal Exam: Comments: Gravid Detailed Labor and Delivery Exam: Patient Gravid: yes Dilation (cm): 9 (Per RN) Tachysystole: No Contraction intensity: Strong/Firm Comments: Feeling increasing pressure but waiting on return for transfer to tub. Suspect shortly after. Routine Extremities Exam: Extremities: Present full ROM Routine Back/Spine/Pelvis Exam: Back/Spine: full ROM and CVA tenderness Routine Skin Exam: Present intact Routine Neurological Exam: Present alert, oriented X3, moving all extremities, normal tone and normal speech Routine Psychiatric Exam: Present normal affect and good judgment OB - Problem Based A/P Additional Plan (1) Normal labor: Status: Acute (2) Pain during labor: Status: Acute (3) Rh negative status during : Status: Acute (4) Depression: Status: Acute Plan ASSESSMENT:? 26 at 39 1/7 weeks gestation? complicated by:? H/o PP anxiety and depression; took lexapro for short period of time; feels she is doing well now Varicella non immune: will need PP vaccination O Rh negative. RhoGAM at 28 weeks. Umbilical hernia Measuring smaller than dates 04/04/22 Anti-D antibody present on 04/05/22 admission T&S, likely related to Rhogam at 28 weeks Labor type: Spontaneous, Active labor? Category 1 FHR pattern.?? Labor complicated by: COVID + GBS negative? ? PLAN:? 1. Routine intrapartum cares as ordered. Continue with expectant management. 2. Monitoring per policy, intermittent. 3. Planning unmedicated . Desires water . Consent signed. Hep C negative. Candidate for analgesia of choice if desired. 4. Patient encouraged to reposition and ambulate to promote physiologic labor and .? 5. COVID + requries mask in labor as much as possible and staff PPE. 6. Anticipate ? Delivery/Labor/Induction Plan Plan: expectant management
[2022-04-18 16:22] LABS: SARS PCR* POSITIVE SARS-CoV-2 (Negative)
--- NOTE | 2022-04-18 18:56 | PM.OBPRCVD ---
Procedure Procedure Done: Global Intrapartal Events: Other (COVID + on admission) Delivery monitor: external FHT and external uterine Route of delivery: Laceration description: None Estimated blood loss (mL): 50 Anesthesia type: None Narrative: The patient is a 26 year-old G3 now P3 admitted on 04/18/2022 at 39 Weeks, 1 Days gestation for spontaneous labor.? Cervical exam on admission was 9 cm with membranes intact in vertex presentation.? Contractions were every 2-3 minutes.? heart rate demonstrated baseline 130 bpm with moderate variability, + accelerations, - decelerations; a category 1 tracing.? AROM occurred at 1725 with clear fluid. ? Labor Analgesia:? none ? Pitocin:? Yes, AMTSL only ? Labor onset:? 04/18/2022 1100 am ? Complete:? 1725 assumed with pushing ? Pushing:? 1725 ? heart tones during second stage were reassuring via intermittent auscultation. ? Patient was admitted for spontaneous and progressed normally. Moved to tub for delivery but after feeling vague pressure, she agree to AROM. She began having intense urge to push. After about 30 minutes of minimal progress with pushing, cervical exam was performed and anterior floppy lip was present. Discussed options of delaying pushing to see if the lip would resolve or retracting manually while pushing. We attempted manual retraction of the lip with pushing in the tub unsuccessfully. She was encouraged to get out of the tub to try position changes or attempt retraction of the lip on the bed. The lip was easily retracted with pushing while semi-fowlers in the bed. of a viable female at 1827 in the bed. Vertex delivered OA. No nuchal cord or shoulder. Body delivered with traction. Infant passed to mothers abdomen with a vigorous cry. Cord was clamped and cut at > 5 minutes. APGARS were 8 at one minute and 9 at five minutes respectively. Mouth was bulb suctioned. Intact placenta with a 3 vessel cord delivered spontaneously at 1842. Fundus firm. Intact perineum. QBL 50 cc. Mother and baby stable; mother plans to breastfeed. Infant weight pending. ? Placenta delivered spontaneously and complete at 1842 with a 3 vessel cord. ? Mother and were stable after delivery. ? Lacerations:?Intact ? Blood loss: 50 mL. Blood loss measurement type: QBL ? Sponge and needles counts are correct. [place] Infant Gender: Female presentation: vertex Placental Delivery Description: Spontaneous Cord Description: 3 Vessels OB Vag Delivery Procedures Additional Procedures ECV: No Cook Catheter Insertion: No NST: No D&C: No Laceration Repair: No Tubal Ligation : No Other: No
[2022-04-18] MEDS: ACETAMINOPHEN 500 MG TABLET 1000 MG PO (19:22)
[2022-04-18] MEDS: OXYTOCIN 30 unit/500 ML in NS 30 UNIT/500 ML BAG 300 UNIT IVPB (20:30)
[2022-04-18] MEDS: TRANEXAMIC ACID 100 MG/ML INJ 1000 MG IV (20:32)
[2022-04-18] MEDS: ONDANSETRON 2 MG/ML inj 4 MG IVP (20:34)
[2022-04-18] MEDS: LACTATED RINGERS 1000 ML 1,000 ML 125 ML IV (20:35)
[2022-04-18] MEDS: miSOPROStoL 800 MCG/4 TABLET PR (20:36)
[2022-04-18] MEDS: fentaNYL 100 MCG/2 ML inj IVP (21:13)
[2022-04-18 21:55] LABS: Basophils Percent Auto 0.1 % (0.0-3.0); Eosinophils Percent Auto 0.1 % (0.0-7.0); Hematocrit 28.9 % (33.0-51.0); Hemoglobin* 9.8 gm/dL (12.0-16.0); Lymphocytes Percent Auto 5.7 % (20-44); Mean Corpuscular HGB Conc 34 gm/dL (32-36); Mean Corpuscular Hemoglobin 31 pg (26-34); Mean Corpuscular Volume 91 fL (80-100); Monocytes Percent Auto 4.9 % (0.0-11.0); Neutrophils Percent Auto 88.5 % (42.0-72.0); Platelet Count* 291 K/uL (140-440); RDW Coefficient of Variation % 13.1 % (11.5-15.5); Red Blood Count 3.18 m/uL (4.00-5.20); White Blood Count* 15.02 K/uL (4.50-11.00)
[2022-04-18 22:00] LABS: Slide Review Reflex No
[2022-04-18 22:13] LABS: Prothrombin Time 13.6 Seconds
[2022-04-18 22:14] LABS: Fibrinogen* 524 mg/dL (200-450); Partial Thromboplastin Time* 27 Seconds (23-33)
--- NOTE | 2022-04-18 22:15 | P.OBPN_ITS ---
OB - PN:Subj Subjective Date Seen: 04/18/22 Patient comments OB post-: other (increasing bleeding. Many clots and increaseing pain with fundal massage. ) [place] status: and doing well (sleepy and not feeding but otherwise doing well) [place] feeding status: exclusively Narrative: Day 0:? Vaginal Delivery at 39 and 1/7 weeks.? ?? Complications:? QBL 50mL after delivery. Since her bleeding has slowly increased and multiple clots expressed with every fundal massage. Two bags of IV Pitocin?and vaginal Cytotec given. Fundus always firm and at or below umbilicus but tender and full feeling. Nursing called me in for concerns of continuing to express clots and increasing QBL. Upon arrival placenta was inspected with possibility of a missing part of membranes. Pt was medicated with fentanyl and a manual removal of membranes was attempted. The uterus was found to contain many clots. These were removed manually, but no obvious membrane were discovered. At this time QBL was found to be over 1600mL. Dr. Ly was called in for consultation. The OR team was also called. Labs were drawn and ultra sounds was in the department if needed. Upon arrival of Dr. Ly, decision was made to go to the OR. Pt feeling tired and having cramping pain. VS stable but pulse was tachycardic. OB - PN: Obj Exam Physical Exam: Vital signs: Temp Pulse Resp BP Pulse Ox 98.9 F 141 H 16 118/72 99 04/18/22 21:03 04/18/22 22:06 04/18/22 16:32 04/18/22 22:06 04/18/22 22:14 Constitutional: Constitutional: no acute distress Routine Exam: External: Present normal external exam Perineum Description: Normal Comments: Fundus firm and U/1 with moderate rubra flow and many clots. Routine Neurological Exam: Neurological: Present alert and oriented X3 OB - PN: Obj Data Labs Labs: Laboratory Results - last 24 hr 04/18/22 04/18/22 04/18/22 15:41 16:07 16:07 WBC 10.96 RBC 3.90 L Hgb 12.0 Hct 35.7 MCV 92 MCH 31 MCHC 34 RDW Coeff of Shana 13.4 Plt Count 298 Neut % (Auto) 80.2 H Lymph % (Auto) 13.1 L [place] % (Auto) 4.6 Eos % (Auto) 0.4 Baso % (Auto) 0.3 Neut # (Auto) 8.80 H Lymph # (Auto) 1.40 [place] # (Auto) 0.50 Eos # (Auto) 0.04 Baso # (Auto) 0.03 Abs Immat Gran (auto) 0.15 INR APTT Fibrinogen SARS-CoV-2 (PCR) POSITIVE SARS-CoV-2 A Blood Type O Negative Antibody Screen POSITIVE Crossmatch ([facility]) See Detail 04/18/22 04/18/22 21:40 21:40 WBC 15.02 H RBC 3.18 L Hgb 9.8 L Hct 28.9 L MCV 91 MCH 31 MCHC 34 RDW Coeff of Shana 13.1 Plt Count 291 Neut % (Auto) 88.5 H Lymph % (Auto) 5.7 L [place] % (Auto) 4.9 Eos % (Auto) 0.1 Baso % (Auto) 0.1 Neut # (Auto) 13.30 H Lymph # (Auto) 0.90 Giles # (Auto) 0.70 Eos # (Auto) 0.00 Baso # (Auto) 0.00 Abs Immat Gran (auto) 0.10 INR 1.00 APTT 27 Fibrinogen 524 H SARS-CoV-2 (PCR) Blood Type Antibody Screen Crossmatch ([facility]) OB - PN: A/P Vaginal Delivery Assessment and Plan (1) Normal labor: Status: Acute (2) Pain during labor: Status: Acute (3) Rh negative status during : Status: Acute (4) Depression: Status: Acute (5) hemorrhage: Status: Acute (6) anemia: Status: Acute Plan Plan: other (To OR with Dr. Ly)
--- NOTE | 2022-04-18 22:15 | P.OBCN_ITS ---
OB - CN: HPI Date of Consult Time Seen by Provider: 22:05 Date Seen: 04/18/22 Patient: [facility] Patient Consult date: 04/18/22 Requesting Physician: Beatriz Alfred CNM Primary Care Provider: Not a Local Provider Consult Narrative Reason for consult: post hemorrhage Narrative: The patient is a 26 year old G 3 P 3 at 39 1/7 weeks gestation that was admitted to the [facility] on 04/18/22 for labor. She is status post an unmedicated spontaneous vaginal delivery at 1827. The placenta delivered at 1842 and was initially thought to be intact. Since delivery, she has continued to bleed excessively. QBL now at 1900 mL. She has had bimanual massage, rectal misop rostol, IM methergine, and IV pitocin. History History 3 Elective abortions Para 2 Spontaneous abortions Hx # Term Pregnancies 2 Ectopic pregnancies Hx # Pregnancies Multiple births Number of Living Children 2 Past Pregnancies Del. Date GA/Weeks Outcome Route wt Inf Gender Labor Lgth Anesthesia Location Provider Compli 12/19/16 37 live - full term 5 lb 6 oz Female [address] [facility] preeclampsia 09/01/18 37 live - full term 6 lb 7 oz Female 9 min epi dural [facility] gestational diabetes Delivery Date: 12/19/16 Last Updated by: Stephany Whelan CNM Did not require antihypertensives following delivery Labs OB Labs: Lab Assessment Start: 04/18/22 15:39 Freq: ONCE Status: Complete Protocol: PC.OBGBS Activity Type Activity Date Activity User E-sign Co-sign Detail Recorded Client Recorded Date Recorded By Document 04/18/22 16:09 [facility] 04/18/22 16:10 [facility] 04/18/22 16:09 Lab Assessment GBS negative Previous with Invasive GBS No Does Patient Meet Criteria No No Treatment Needed OK Maternal Blood Type O Maternal RH Factor Negative Evaluate Maternal Rubella Immune Status Immune Hepatitis B Surface Antigen Negative Maternal HIV Status Negative Maternal Syphillis (RPR) Status Negative Are Labs Available Yes Review of Systems Status of ROS: Reports: unobtainable due to medical condition 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 She was diagnosed 03/2021. Marital status: . Partner: Satnam. Lives with: and 2 daughters. Pets: cat. Druze/cultural needs: No. Chemical or radiation exposure: No. Pre- tobacco use: No. Pre- alcohol use: No. Current tobacco use: No. History of tobacco use- quit cold turkey with in 2017 Current alcohol use: No. Recreational drug use: No. Dietary restrictions: No. Blood transfusion acceptable in an emergency: Yes. Planning to breastfeed: Yes. Smoking Status: Former smoker Meds Home Medications and Allergies Home Medications Medication Instructions Recorded Confirmed Type aspirin 81 mg chewable tablet 81 mg PO QDAY 02/17/22 04/18/22 History calcium carbonate 200 mg calcium 200 mg PO BID 02/17/22 04/18/22 History (500 mg) chewable tablet (Tums) doxylamine succinate 25 mg tablet 25 mg PO .Bedtime 02/17/22 04/18/22 History famotidine 10 mg tablet 10 mg PO DAILY 02/17/22 04/18/22 History ferrous sulfate 325 mg (65 mg 325 mg PO DAILY 02/17/22 04/18/22 History iron) tablet magnesium hydroxide 400 mg/5 mL 30 ml PO .Daily as needed PRN 02/17/22 04/18/22 History oral suspension prenat.vits,waldo,[id number]-[id number] 1 tab PO QDAY 04/04/22 04/18/22 History Allergies Allergy/AdvReac Type Severity Reaction Status Date / Time tetracycline Allergy Mild Unknown Verified 04/11/22 14:04 amoxicillin Allergy Unknown Verified 04/11/22 14:04 Sulfa drugs Allergy Mild Unknown Uncoded 04/11/22 14:04 OB - H&P: Exam Physical Exam: Vital signs: Temp Pulse Resp BP Pulse Ox 98.9 F 141 H 16 118/72 99 04/18/22 21:03 04/18/22 22:06 04/18/22 16:32 04/18/22 22:06 04/18/22 22:14 Constitutional: Constitutional: mild distress Routine Cardiovascular Exam: Cardiovascular: tachycardia Routine Exam: Comments: Clot on perineum, mild flow Detailed Labor and Delivery Exam: Consistency: firm (at U) Routine Extremities Exam: Extremities: Present normal inspection OB - Results Labs Labs: Short CBC 04/18/22 04/18/22 Range/Units 16:07 21:40 WBC 10.96 15.02 H (4.50-11.00) K/uL Hgb 12.0 9.8 L (12.0-16.0) gm/dL Hct 35.7 28.9 L (33.0-51.0) % Plt Count 298 291 (140-440) K/uL OB - CN: A/P Assessment and Plan (1) hemorrhage: Status: Acute Plan Inform consent obtained for uterine curettage and possible placement of Bakri balloon. Patient understands that she may need blood transfusion to replace blood lost. O.R. staff and anesthesia notified.
[2022-04-18] MEDS: CEFAZOLIN 2 GM in 0.9 % SODIUM CHLORIDE Mini-bag 100 ML IVPB (22:30)
[2022-04-18 23:15] LABS: Hemoglobin* 7.4 gm/dL (12.0-16.0)
--- NOTE | 2022-04-18 23:26 | W.PM.GYNPROC ---
Procedure Note Date Seen: 04/18/22 Procedure Details: PREOPERATIVE DIAGNOSIS: hemorrhage. POSTOPERATIVE DIAGNOSIS: hemorrhage. PROCEDURE: Suction curettage under ultrasound guidance. Placement of Bakri balloon. SURGEON: Malachi. ANESTHESIA: Spinal. COMPLICATIONS: None. ESTIMATED BLOOD LOSS: 700 mL. FINDINGS: Heterogeneous material within the uterine cavity, particularly in the lower uterine segment, suspicious for retained products of conception/placenta. PROCEDURE NOTE: After obtaining informed consent, the patient was taken to the operating room where she received monitored anesthesia care. She was prepared and draped in the normal, sterile fashion in the dorsal lithotomy position. 2 g of IV Ancef was administered intravenously. An examination was performed under anesthesia which demonstrated an enlarged uterus, pendulous cervix, firm fundus and boggy lower uterine segment. An open-sided bivalve speculum was placed into the vagina and the cervix easily visualized. The anterior lip of the cervix was grasped with a ring forceps for traction. A 2nd ring forceps was placed on the posterior lip of the cervix. A 14 mm rigid, curved suction cannula was advanced through the cervical os into the uterine cavity under ultrasound guidance. Gentle suction was applied, and the uterine lining gently curetted. A large amount of products of conception, clots and blood was removed. The suction cannula was replaced into the uterus multiple times, in each time additional tissue was recovered. The uterine lining was gently explored using a sharp curette, and additional clots removed. There was a moderate piece of tissue, approximately 1.5 centimeters sqare, that I was able to digitally remove from the lower uterine segment. One final pass was made with the suction cannula, no further tissue was recovered. A Bakri balloon was then placed under ultrasound guidance, filled with 200 mL sterile normal saline, which provided tamponade in the mid uterus and lower uterine segment. The Bakri tubing was connected to a sterile bag. All instruments were then removed. The patient tolerated the procedure well. Sponge, lap, and needle counts were reported as correct x2. The patient was taken to the recovery room awake and in stable condition. At the conclusion of the procedure, the patient was noted to be tachycardic with a heart rate of 150 beats per minute, and she was hypotensive. Hemoglobin level was drawn reported to be 7.4. 2 units of packed red blood cells were ordered to be transfused. PATHOLOGY SPECIMEN(S): Products of conception.
--- NOTE | 2022-04-18 23:39 | W.ANESCHARGE ---
Anesthesia Charges Start Date/Time Anesthesia Start Date: 04/18/22 Anesthesia Start Time: 22:22 Stop Date/Time Anesthesia Stop Date: 04/18/22 Anesthesia Stop Time: 23:22 Summary Emergency: Yes
[2022-04-18] MEDS: LACTATED RINGERS 1000 ML 1,000 ML 925 ML IV (23:49)
[2022-04-19] VITALS (22 sets, daily range): BP systolic 93–116; BP diastolic 55–81; PULSE 93–119; RESP 14–16; TEMP 36.7–37.7; O2SAT 95–99
[2022-04-19] MEDS: ACETAMINOPHEN 500 MG TABLET 1000 MG PO ×2 (05:03→12:14)
[2022-04-19 05:10] LABS: Basophils Percent Auto 0.1 % (0.0-3.0); Eosinophils Percent Auto 0.1 % (0.0-7.0); Hematocrit 31.2 % (33.0-51.0); Hemoglobin* 10.7 gm/dL (12.0-16.0); Immature Granulocytes Abs Auto 0.13 K/uL (0.00-0.30); Lymphocytes Percent Auto 11.2 % (20-44); Mean Corpuscular HGB Conc 34 gm/dL (32-36); Mean Corpuscular Hemoglobin 30 pg (26-34); Mean Corpuscular Volume 86 fL (80-100); Monocytes Percent Auto 4.9 % (0.0-11.0); Neutrophils Percent Auto 82.8 % (42.0-72.0); Platelet Count* 242 K/uL (140-440); RDW Coefficient of Variation % 17.3 % (11.5-15.5); Red Blood Count 3.61 m/uL (4.00-5.20); White Blood Count* 15.24 K/uL (4.50-11.00)
[2022-04-19 05:20] LABS: Slide Review Reflex No
[2022-04-19 05:27] LABS: Fibrinogen* 425 mg/dL (200-450); INR 1.02 (0.91-1.10); Prothrombin Time 13.8 Seconds
[2022-04-19 05:28] LABS: Partial Thromboplastin Time* 29 Seconds (23-33)
--- NOTE | 2022-04-19 07:40 | PM.OBPNVD1 ---
OB - PN:Subj Subjective Date Seen: 04/19/22 Interval history: Rounding Patient comments OB post-: no complaints, pain well controlled, tolerating diet and flatus present infant status: [place] feeding status: exclusively Narrative: The patient is a 26 year old G 3 P 3 at 39 1/7 weeks gestation that was admitted to the Center on 04/18/22 for spontaneous labor. She had an uncomplicated vaginal delivery. Her was complicated by a hemorrhage with suspicion of retained product of conception requiring a d&c for removal with bakri placement. This fell out while up voiding last night and bleeding has since remained very light. She delivered a viable female . She is breast feeding. the patient has done well. She reports feeling significantly better this morning, just tired. She was planning a tubal. OB - PN: Obj Exam Physical Exam: Vital signs: Temp Pulse Resp BP Pulse Ox O2 Del Method 99.2 F 95 14 108/70 98 04/19/22 07:00 04/19/22 07:00 04/19/22 07:00 04/19/22 07:00 04/19/22 07:00 04/19/22 07:00 Constitutional: Constitutional: no acute distress and cooperative Routine Neck Exam: Neck: Present full ROM Detailed Neck Exam: Thyroids: Comments: Supple Routine Respiratory Exam: Respiratory: Present CTA bilaterally Routine Cardiovascular Exam: Cardiovascular: Present RRR Routine Abdominal Exam: Fundus: Present firm (u/u) Routine Exam: Perineum Description: Edematous Comments: Lochia: small Fundus: u/3 Routine Back/Spine/Pelvis Exam: Back/Spine: Present full ROM Routine Skin Exam: Skin: Present dry, intact and warm Routine Neurological Exam: Neurological: Present alert and oriented X3 Routine Psychiatric Exam: Psychiatric: Present normal affect and normal thought process OB - PN: Obj Data Labs Labs: Laboratory Results - last 24 hr 04/18/22 04/18/22 04/18/22 15:41 16:07 16:07 WBC 10.96 RBC 3.90 L Hgb 12.0 Hct 35.7 MCV 92 MCH 31 MCHC 34 RDW Coeff of Shana 13.4 Plt Count 298 Neut % (Auto) 80.2 H Lymph % (Auto) 13.1 L [place] % (Auto) 4.6 Eos % (Auto) 0.4 Baso % (Auto) 0.3 Neut # (Auto) 8.80 H Lymph # (Auto) 1.40 [place] # (Auto) 0.50 Eos # (Auto) 0.04 Baso # (Auto) 0.03 Abs Immat Gran (auto) 0.15 INR APTT Fibrinogen SARS-CoV-2 (PCR) POSITIVE SARS-CoV-2 A Blood Type O Negative Antibody Screen POSITIVE Crossmatch ([facility]) See Detail 04/18/22 04/18/22 04/18/22 21:40 21:40 23:00 WBC 15.02 H RBC 3.18 L Hgb 9.8 L 7.4 L* Hct 28.9 L MCV 91 MCH 31 MCHC 34 RDW Coeff of Shana 13.1 Plt Count 291 Neut % (Auto) 88.5 H Lymph % (Auto) 5.7 L [place] % (Auto) 4.9 Eos % (Auto) 0.1 Baso % (Auto) 0.1 Neut # (Auto) 13.30 H Lymph # (Auto) 0.90 [place] # (Auto) 0.70 Eos # (Auto) 0.00 Baso # (Auto) 0.00 Abs Immat Gran (auto) 0.10 INR 1.00 APTT 27 Fibrinogen 524 H SARS-CoV-2 (PCR) Blood Type Antibody Screen Crossmatch ([facility]) 04/19/22 04/19/22 04/19/22 05:04 05:04 05:04 WBC 15.24 H RBC 3.61 L Hgb 10.7 L Hct 31.2 L MCV 86 MCH 30 MCHC 34 RDW Coeff of Shana 17.3 H Plt Count 242 Neut % (Auto) 82.8 H Lymph % (Auto) 11.2 L [place] % (Auto) 4.9 Eos % (Auto) 0.1 Baso % (Auto) 0.1 Neut # (Auto) 12.60 H Lymph # (Auto) 1.70 [place] # (Auto) 0.70 Eos # (Auto) 0.00 Baso # (Auto) 0.00 Abs Immat Gran (auto) 0.13 INR 1.02 APTT 29 Fibrinogen 425 SARS-CoV-2 (PCR) Blood Type Antibody Screen Crossmatch ([facility]) OB - PN: A/P Vaginal Delivery Assessment and Plan (1) care and examination immediately after delivery: Status: Acute (2) Status post vaginal delivery: Status: Acute (3) hemorrhage: Status: Acute (4) anemia: Status: Acute (5) COVID-19 affecting childbirth: Status: Acute (6) Rh negative status during : Status: Acute (7) Lactating mother: Status: Acute Plan hemorrhage requiring D&C. 2 units of RBC given last evening. Lactating mother. May see if desired. Will discuss pp tubal w/ MD system integration engineer. Anticipate D/C tomorrow. Plan day: 1 Plan: routine care
[2022-04-20 00:10] VITALS: BP 116/81; PULSE 103; RESP 18; TEMP 36.8; O2SAT 97
[2022-04-20 05:47] VITALS: BP 117/70; PULSE 94; RESP 16; TEMP 37; O2SAT 96
--- NOTE | 2022-04-20 08:15 | PM.OBDSVD1 ---
DS: Providers Provider Date Seen: 04/20/22 Date of admission: 04/18/22 15:44 Primary care physician: Not a Local Provider Admitting Clinician: Stephany Whelan CNM Attending Physician on discharge: Stephany Whelan CNM Date of Discharge: 04/20/22 Exam Const: Vital Signs, click to edit/add: Vital Signs - 24 hr 04/19/22 12:05 04/19/22 16:02 04/19/22 20:38 Temperature 98.7 F 98.9 F 98.6 F Pulse Rate [Pulse Oximeter] 93 96 99 Respiratory Rate 16 16 16 Blood Pressure [Ri ght Arm] 107/71 109/70 109/81 Pulse Oximetry 98 97 98 Oxygen Delivery Me thod Room Air Room Air Room Air 04/20/22 00:10 04/20/22 05:47 Temperature 98.3 F 98.6 F Pulse Rate [Pulse Oximeter] 103 H 94 Respiratory Rate 18 16 Blood Pressure [Ri ght Arm] 116/81 117/70 Pulse Oximetry 97 96 Oxygen Delivery Me thod Room Air Room Air Documenting provider has reviewed patient's vital signs: yes Common normals: no apparent distress General appearance: cooperative and comfortable HENMT: Common normals: normocephalic and hearing grossly normal bilaterally Head and scalp: normocephalic Face and sinus: normal facial exam Eye: General eye: normal appearance of both eyes Neck & C-Spine: Common normals: full ROM and no JVD General: normal visual inspection Resp: Common normals: normal respiratory effort, no retractions, no use of accessory muscles and clear to auscultation bilaterally Auscultation: clear to auscultation bilaterally Cardio: Common normals: no JVD, regular rate, regular rhythm, S1 normal heart sound, S2 normal heart sound, no gallops, no clicks, no murmurs and no rub Rate: regular rate Rhythm: regular rhythm Heart sounds: S1 normal and S2 normal GI: Common normals: soft to palpation and non-tender Palpation: soft : OB/external & speculum: Yes external exam normal Uterus: U/2 Lochia: small Extremity: Common normals: full ROM Psych: Common normals: mental status grossly normal, thought process normal, cooperative, affect normal, speech normal and activity/motor behavior normal Speech: normal speech Thought process: normal thought process OB - DS: Summary Hospital Course Hospital Course: The patient is a 26 year old G 3 P 3 at 39.1 weeks gestation that was admitted to the Center on 04/18/22 for labor. She had an uncomplicated vaginal delivery. She delivered a viable female infant. She had a delayed PP hemorrhage with a total QBL of over 2600. She was taken to the OR for a D&C and was given 2 units of blood after. Her Hgb was down to 7.4 after but rebounded to 10.7 yesterday. She is breast feeding and feels that it is going good. the patient has done well. Peripartum Data delivery method: Vaginal Laceration description: None Episiotomy description: None Procedures: Procedures Operation Date: 04/18/22 22:00 Actual Procedure Side Surgeon rick Suction D&C Lynne Ly MD Procedures: D&C complications: transfusion and retained placenta [place] Gender: Female Discharge Plan: Home Status at Discharge Functional status at discharge: independent ambulation Overall status at discharge: patient is progressing back to baseline Time Spent with Patient Time attestation: Total time spent providing and/or coordinating discharge services: Discharge Plan Discharge Disposition: Home, Self-Care Date of Admission: 04/18/22 15:44 Primary Care Provider: Provider,Not a Local Condition: Stable Anticipated Discharge Date/Time: 04/20/22 12:00 Discharge Medications: New docusate sodium 100 mg Capsule 100 mg PO DAILY PRNQty: 100 0RF Rx Instructions: Take 1-2 tablets daily as needed for constipation. ibuprofen 600 mg Tablet 600 mg PO Q6H PRNQty: 60 0RF Continued famotidine 10 mg tablet 10 mg PO DAILY ferrous sulfate 325 mg (65 mg iron) tablet 325 mg PO DAILY prenat.vits,waldo,xmn-bkis-jbdcu Tablet 1 tab PO QDAY Discontinued doxylamine succinate 25 mg tablet 25 mg PO .Bedtime aspirin 81 mg tablet,chewable 81 mg PO QDAY magnesium hydroxide 400 mg/5 mL suspension 30 ml PO .Daily as needed PRN calcium carbonate [Tums] 200 mg calcium (500 mg) tablet,chewable 200 mg PO BID ondansetron HCl 4 mg tablet 4 mg PO Q6H PRN (Reason: nausea and vomiting) Qty: 60 3RF Discharge Orders: Discharge Order (Routine); Ordered 04/20/22 Ordered By: Beatriz Alfred Patient Education: Deep Sedation (DC) Activity Restrictions/Additional Instructions: Discharge instructions were reviewed with the patient including signs and symptoms of infection and home going medications.? Off Work or School for 6 weeks.? ?? Symptoms to report to doctor:? -Bleeding that saturates more than one pad per hour? -Passing clots larger than the size of a golf ball? -Pain not relieved by prescribed medication? -Fever above 100.4 degrees Fahrenheit? -A foul vaginal odor? -Difficulty in emotions, mood and functions? -Thoughts of hurting yourself and/or ? -Painful, reddened area in your breast? -Any drainage, redness or tenderness in your IV/epidural site? -Severe headache that doesn't improve after taking medications? -Changes in vision, including temporary loss of vision, blurred vision, and/or light sensitivity? -Upper abdominal pain (usually under ribs on the right side)? -Decrease in urination or painful, frequent urinating? -Chest pain? -Shortness of breath? -Tenderness or pain with redness and/swelling in the calf(s) of your leg? ?? Follow Up in clinic in 2 and 6 weeks.? ?? consultation services are available to all mothers and babies for the first year after delivery.? To make an appointment, please call [phone].? Activity Level: No Restrictions and Activity as Tolerated Discharge Diet: Regular Follow Up Appointments: Provider,Not a Local [Primary Care Provider] - Forms: MyHealth Info Instructions
[2022-04-20 08:30] VITALS: BP 120/77; PULSE 99; RESP 18; TEMP 37.2
[2022-04-20 09:32] VITALS: BP 100/64; PULSE 99; RESP 18; TEMP 37.2; O2SAT 96
== END 2022-04-20 10:37 | disposition home or self-care (01) | DRG 768 ==
LOC: OB OUT 15:44 → OB 15:44
PROVIDERS: Obstetrics & Gynecology; Admitting Provider Advanced Practice Midwife; Visit Provider Advanced Practice Midwife
PROC: 0W3R7ZZ Control Bleeding in Genitourinary Tract, Via Natural or Artificial Opening (ICD-10-PCS; principal; 2022-04-18 21:50)
DX: O98.52 Other viral diseases complicating childbirth (principal); Z37.0 Single live birth; U07.1 COVID-19; O72.2 Delayed and secondary postpartum hemorrhage; D62 Acute posthemorrhagic anemia; O90.81 Anemia of the puerperium; O99.344 Other mental disorders complicating childbirth; F32.A Depression, unspecified; Z86.32 Personal history of gestational diabetes; Z3A.39 39 weeks gestation of pregnancy
CPT/HCPCS: 01965; 36415; 36430; 51798; 76856; 76998; 85018; 85025; 85384; 85461; 85610; 85730; 86850; 86870; 86880; 86900; 86901; 86922; 87635; 88305; 88307; 99140; 99213; A9270; J0690; J2250; J2400; J2405; J2704; J2791; J3010; J7120; P9016